=== PATIENT | male | born 1995 | race Caucasian/White ===

== ENCOUNTER 2018-07-17 12:18 | Emergency (ER) | payer OTHER ==
[2018-07-17 12:24] VITALS: BP 116/65; PULSE 62; TEMP 98.3; BMI 23.7
--- NOTE | 2018-07-17 12:58 | PDOC ---
History of Present Illness - General Chief Complaint: Injury Stated Complaint: RT HAND INJURY Time Seen by Provider: 07/17/18 12:56 - History of Present Illness Initial Comments: 07/17/18 13:02 Chief complaint: Hand injury History of present illness: Patient complains of pain over the radial aspect of the right hand. He punched a wall last night approximately 5 PM, with resultant pain and swelling. No prior head injuries or fractures Review of systems: Denies distal numbness tingling or limited range of motion or weakness. Denies any other injury Past medical history: Mild asthma, controlled on when necessary inhaler, no symptoms recently. Otherwise healthy Social/family history reviewed and noncontributory Physical exam: Alert and oriented well-developed well-nourished no acute distress cooperative Afebrile, vital signs normal Physical exam normal except for the right hand. There is mild swelling and tenderness over the fifth metacarpal. No point tenderness or swelling of the CMC or MCP joints. No significant deformity of the hand or digits. Capillary refill intact to all 5 fingers. No distal sensory deficits. Tendon function, flexion and extension of the DIP and PIP joints against resistance, intact Impression: Rule out metacarpal fracture. No sign of neurovascular injury Plan: X-ray and further orthopedic management depending on results Past History - Past Medical History Allergies/Adverse Reactions: Allergies Allergy/AdvReac Type Severity Reaction Status Date / Time No Known Allergies Allergy Verified 07/17/18 12:19 Home Medications: Ambulatory Orders Albuterol Sulfate Inhaler - [Ventolin Hfa Inhaler -] 1 - 2 inh PO Q4H PRN Asthma: Yes COPD: No - Suicide/Smoking/Psychosocial Hx Smoking History: Never smoked Have you smoked in the past 12 months: No Information on smoking cessation initiated: No Hx Alcohol Use: No *Physical Exam - Vital Signs Last Vital Signs Temp Pulse Resp BP Pulse Ox 98.3 F 62 18 116/65 98 07/17/18 12:18 07/17/18 12:18 07/17/18 12:18 07/17/18 12:18 07/17/18 12:18 Medical Decision Making - Medical Decision Making 07/17/18 13:48 X-ray reveals nondisplaced, mildly angulated transverse fracture of the mid shaft of the fifth metacarpal Ulnar gutter splint was applied, and patient more comfortable. No distal numbness or tingling. Good finger to motion without pain. To follow-up with orthopedist as directed. 07/17/18 14:01 *DC/Admit/Observation/Transfer Diagnosis at time of Disposition: Fracture of fifth metacarpal bone of right hand Qualifiers: Encounter type: initial encounter Fracture type: closed Metacarpal location: shaft Fracture alignment: nondisplaced Qualified Code(s): S62.356A - Nondisplaced fracture of shaft of fifth metacarpal bone, right hand, initial encounter for closed fracture - Discharge Dispostion Disposition: HOME Condition at time of disposition: Improved Decision to Admit order: No - Referrals Referrals: Leo Giles MD [Staff Physician] - 1 week - Patient Instructions Printed Discharge Instructions: DI for Boxer's Fracture Additional Instructions: Rest, ice, elevate, splint. Motrin as needed for pain. See orthopedist for further evaluation and treatment within 1 week. - Post Discharge Activity
== END 2018-07-17 14:15 | disposition home or self-care (01) ==
LOC: FER 12:18
PROC: 2W3CX1Z Immobilization of Right Lower Arm using Splint (ICD-10-PCS; principal; 2018-07-17)
DX: S62.356A Nondisplaced fracture of shaft of fifth metacarpal bone, right hand, initial encounter for closed fracture (principal); W22.09XA Striking against other stationary object, initial encounter; Y93.89 Activity, other specified; Y92.9 Unspecified place or not applicable
CPT/HCPCS: 29125; 73130-TC-RT-FY; 99283-25